=== PATIENT | female | born 1980 | race Caucasian/White ===

== ENCOUNTER 2018-12-25 17:32 | Emergency (ER) | payer SELFPAY ==
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
[2018-12-25 19:06] LABS: ABS Basophils 0.1 10^3/ul (0-0.2); ABS Eosinophils 0.3 10^3/ul (0-0.6); ABS Lymphocytes 1.9 10^3/ul (1.0-4.8); ABS Monocytes 0.7 10^3/ul (0-0.8); ABS Neutrophils 4.3 10^3/ul (1.5-7.7); Eosinophil % 3.8 %; Hematocrit 39 % (35-47); Hemoglobin 13.2 g/dL (12.0-16.0); Lymphocyte % 25.7 %; Mean Corpuscular HGB Conc 34 g/dL (31-36); Mean Corpuscular Hemoglobin 32 pg (27-31); Mean Corpuscular Volume 93 fL (80-97); Mean Platelet Volume 7.1 fL (7.4-10.4); Platelet Count 295 10^3/uL (150-450); Red Blood Count 4.14 10^6 /uL (3.70-4.87); Red Cell Distribution Width 13 % (10-15); White Blood Count 7.2 10^3/uL (3.5-10.8)
[2018-12-25 19:22] LABS: ALT 16 U/L (7-52); AST 14 U/L (13-39); Albumin 4.2 g/dL (3.2-5.2); Albumin/Globulin Ratio 1.4 (1-3); Alkaline Phosphatase 71 U/L (34-104); Anion Gap 6 mmol/L (2-11); BUN/Creatinine Ratio 20.5 (8-20); Blood Urea Nitrogen 15 mg/dL (6-24); CO2 Carbon Dioxide 24 mmol/L (22-32); Calcium 9.1 mg/dL (8.6-10.3); Chloride 107 mmol/L (101-111); EGFR African American 106.8 (>60); EGFR Non-African American 88.3 (>60); Glucose 113 mg/dL (70-100); Potassium 3.9 mmol/L (3.5-5.0); Sodium 137 mmol/L (135-145); Total Protein 7.2 g/dL (6.4-8.9)
[2018-12-25 19:36] LABS: Acetaminophen < 15 mcg/mL; Alcohol < 10 mg/dL (<10); Salicylate < 2.50 mg/dL (<30)
[2018-12-25 19:51] LABS: TSH (Thyroid Stimulating Horm) 2.79 mcIU/mL (0.34-5.60)
[2018-12-25 21:40] LABS: Urine Appearance Clear; Urine Bacteria Absent (Absent); Urine Bilirubin Negative (Negative); Urine Blood Negative (Negative); Urine Color Colorless; Urine Glucose Negative (Negative); Urine Ketones Negative (Negative); Urine Nitrite Negative (Negative); Urine Protein Negative (Negative); Urine Red Blood Cell Absent (Absent); Urine Specific Gravity 1.002 (1.010-1.030); Urine Squamous Epithelial Cell Present (Absent); Urine Urobilinogen Negative (Negative); Urine White Blood Cell Trace(0-5/hpf) (Absent)
--- NOTE | 2018-12-25 22:05 | ED ---
Progress - Progress Note Progress Note: Pt is a signout from Dr. Lopez at 2200 on 12/25/18 pending MHE. - Consult/PCP Time Called: 19:30 Re-Evaluation - Re-Evaluation 1st re-eval Re-Evaluation Time: 23:54 Change: Unchanged Comment: Per Dr. Meade, pt will be d/c'ed with [facility] the [facility]. Dx is depressive disorder. Course/Dx - Course Course Of Treatment: Pt is a signout from Dr. Lopez at 2200 on 12/25/18 pending MHE. As of 2353, per Dr. Meade, pt will be d/c'ed with referral to the [facility]. Dx is depressive disorder. - Diagnoses Provider Diagnoses: Depressive disorder Discharge ED - Sign-Out/Discharge Documenting (check all that apply): Patient Departure, Receiving Sign-Out Receiving patient FROM: Eduardo Lopez - Discharge Plan Condition: Stable Disposition: HOME Referrals: No Primary Care Phys,NOPCP [Primary Care Provider] - - Attestation Statements Document Initiated by Scribe: Yes Documenting Scribe: Jazmín Rubio Provider For Whom Scribe is Documenting (Include Credential): Ирина Silva MD. Scribe Attestation: Jazmín Stone, scribed for Ирина Silva MD. on 12/26/18 at 0000. Status of Scribe Document: Ready
[2018-12-25 22:16] LABS: Urine Benzodiazepine Screen None Detected (None Detect); Urine Opiates Screen None Detected (None Detect)
[2018-12-26 00:33] VITALS: BP 0/0
== END 2018-12-26 00:32 | disposition home or self-care (01) ==
LOC: ED 17:32
DX: F32.9 Major depressive disorder, single episode, unspecified (principal); Z88.0 Allergy status to penicillin
CPT/HCPCS: 36415; 80053; 80307; 80320; 80329; 81003; 81015; 84443; 85025; 87077; 87086; 87186; 99285; G0480